=== PATIENT | male | born 1930 | race Caucasian/White ===

== ENCOUNTER 2017-04-03 09:50 | Inpatient (IN) | payer MEDICARE ==
[~2017-04-03] VITALS: Ht 180.3 cm; Wt 67.6 kg
[~2017-04-03 09:50] MED LIST: ACET-2900 PO; ASCO250T5 PO; CALC-877 PO; CARV6.2579 PO; DOCU-116 PO; GUAIFCF5L PO; LEVO125T11 PO; LEVO500T2 PO; MULT-248 PO; SIMV20TA6 PO; ZINC50TA38 PO
[2017-04-03 10:08] LABS: BASOPHILS % (AUTO) 0.5 % (0.0-5.0); HEMATOCRIT 28.2 % (42-54); LYMPHOCYTES % (AUTO) 13.6 % (21.0-51.0); MEAN CORPUSCULAR HEMOGLOBIN 23.2 pg (27.0-33.0); MEAN CORPUSCULAR HGB CONC 30.4 g/dL (32.0-36.0); MEAN CORPUSCULAR VOLUME 76.5 fL (79-99); MONOCYTES % (AUTO) 8.4 % (3.0-13.0); NEUTROPHILS % (AUTO) 74.5 % (40.0-77.0); PLATELET COUNT (AUTO) 322 K/uL (130-400); RED BLOOD CELL COUNT(AUTO) 3.68 MIL/uL (4.50-6.20); RED CELL DISTRIBUTION WIDTH 18.2 % (11.0-15.5); WHITE BLOOD COUNT (AUTO) 11.6 K/uL (4.8-10.8)
[2017-04-03 10:24] LABS: ALBUMIN 2.1 g/dL (3.5-5.0); BILIRUBIN,DIRECT 0.2 mg/dL (0.0-0.3); BILIRUBIN,TOTAL 0.4 mg/dL (0.2-1.0); CREATININE 1.5 mg/dL (0.5-1.5); POTASSIUM 3.9 mmol/L (3.5-5.1); TOTAL PROTEIN, SERUM 7.2 g/dL (6.0-8.3)
[2017-04-03] MEDS ORDERED: PANTOPRAZOLE SODIUM 80 MG in NS 100ML IVP SCH ×5 (10:30→20:45)
[2017-04-03 10:45] LABS: INR 1.1 (0.85-1.15); PARTIAL THROMBOPLASTIN TIME 27.2 SEC (26.3-35.5); PROTHROMBIN TIME 11.5 SEC (9.6-11.6)
[2017-04-03] MEDS ORDERED: IOPAMIDOL-370 100 ML VIAL IV ONE (11:06)
[2017-04-03] MEDS ORDERED: VANCOMYCIN 1GM+NS 250ML 250 ML IV ONE (14:49)
[2017-04-03] MEDS ORDERED: ZOSYN 3.375GM+NS 50ML 50 ML IV ONE (14:49)
[2017-04-03] MEDS ORDERED: VANCOMYCIN PROTOCOL PER PHARMACY IV SCH (15:00)
[2017-04-03 20:25] VITALS: BP 111/52
[2017-04-03] MEDS ORDERED: LACTULOSE 20 GM/30 ML UDCUP PO PRN (21:30)
[2017-04-03] MEDS ORDERED: ONDANSETRON HCL 4 MG/2 ML VIAL IVP PRN (21:30)
[2017-04-03] MEDS ORDERED: CLONIDINE HCL 0.1 MG TABLET PO PRN (21:30)
[2017-04-03] MEDS ORDERED: ACETAMINOPHEN 325 MG TAB PO PRN ×2 (21:30)
[2017-04-03] MEDS: ZOSYN 3.375GM+NS 50ML 50 ML IV SCH (22:05)
[2017-04-04 00:25] VITALS: BP 103/58
[2017-04-04 04:08] VITALS: BP 104/71
[2017-04-04] MEDS ORDERED: DONE10TA8 PO (04:46)
[2017-04-04] MEDS ORDERED: CARB-38 PO (04:46)
[2017-04-04 05:02] LABS: HEMATOCRIT 25.7 % (42-54); MEAN CORPUSCULAR HEMOGLOBIN 24.1 pg (27.0-33.0); MEAN CORPUSCULAR HGB CONC 31.4 g/dL (32.0-36.0); MEAN CORPUSCULAR VOLUME 76.6 fL (79-99); PLATELET COUNT (AUTO) 299 K/uL (130-400); RED BLOOD CELL COUNT(AUTO) 3.35 MIL/uL (4.50-6.20); RED CELL DISTRIBUTION WIDTH 17.9 % (11.0-15.5); WHITE BLOOD COUNT (AUTO) 10.9 K/uL (4.8-10.8)
[2017-04-04 05:10] LABS: CREATININE 1.6 mg/dL (0.5-1.5); POTASSIUM 3.8 mmol/L (3.5-5.1)
[2017-04-04] MEDS: ZOSYN 3.375GM+NS 50ML 50 ML IV SCH ×3 (05:13→21:50)
[2017-04-04] MEDS: VANCOMYCIN 500MG+NS 100ML 100 ML IV SCH ×2 (05:13→17:43)
[2017-04-04 08:00] VITALS: BP 97/34
[2017-04-04] MEDS: DEXTROSE 5%-WATER 1,000 ML IV SCH (10:15)
[2017-04-04] MEDS ORDERED: DOCUSATE SODIUM 100 MG CAP PO PRN (10:15)
[2017-04-04 12:00] VITALS: BP 128/60
[2017-04-04] MEDS: CARBIDOPA-LEVODOPA 25-100 TAB PO SCH ×2 (15:02→21:47)
[2017-04-04 16:00] VITALS: BP 119/62
[2017-04-04] MEDS: ASCORBIC ACID 500 MG TAB PO SCH (17:43)
[2017-04-04] MEDS: PANTOPRAZOLE SODIUM 40 MG TABLET.DR PO SCH (17:43)
[2017-04-04 20:00] VITALS: BP 121/53
[2017-04-04] MEDS: ATORVASTATIN CALCIUM 10 MG TABLET PO SCH (21:47)
[2017-04-04] MEDS: CARVEDILOL 6.25 MG TABLET PO SCH (21:48)
[2017-04-05] VITALS (7 sets, daily range): BP systolic 96–133; BP diastolic 53–78
[2017-04-05 03:56] LABS: HEMATOCRIT 24.8 % (42-54); MEAN CORPUSCULAR HEMOGLOBIN 23.6 pg (27.0-33.0); MEAN CORPUSCULAR HGB CONC 31.2 g/dL (32.0-36.0); MEAN CORPUSCULAR VOLUME 75.5 fL (79-99); PLATELET COUNT (AUTO) 308 K/uL (130-400); RED BLOOD CELL COUNT(AUTO) 3.28 MIL/uL (4.50-6.20); RED CELL DISTRIBUTION WIDTH 18.1 % (11.0-15.5); WHITE BLOOD COUNT (AUTO) 10.4 K/uL (4.8-10.8)
[2017-04-05 04:02] LABS: CREATININE 1.7 mg/dL (0.5-1.5); POTASSIUM 3.5 mmol/L (3.5-5.1)
[2017-04-05] MEDS: ZOSYN 3.375GM+NS 50ML 50 ML IV SCH ×3 (05:11→22:20)
[2017-04-05] MEDS: VANCOMYCIN 500MG+NS 100ML 100 ML IV SCH ×2 (05:12→16:51)
[2017-04-05] MEDS: DEXTROSE 5%-WATER 1,000 ML IV SCH (05:47)
[2017-04-05] MEDS: PANTOPRAZOLE SODIUM 40 MG TABLET.DR PO SCH ×2 (06:24→16:50)
[2017-04-05] MEDS: LEVOTHYROXINE 125 MCG TABLET PO SCH (06:24)
[2017-04-05] MEDS: DONEPEZIL HCL 5 MG TAB PO SCH (09:48)
[2017-04-05] MEDS: CARBIDOPA-LEVODOPA 25-100 TAB PO SCH ×3 (09:48→22:21)
[2017-04-05] MEDS: ASCORBIC ACID 500 MG TAB PO SCH ×2 (09:49→16:50)
[2017-04-05] MEDS: MULTIVITAMIN WITH MINERALS TABLET PO SCH (09:49)
[2017-04-05] MEDS: CARVEDILOL 6.25 MG TABLET PO SCH ×2 (09:49→22:21)
[2017-04-05] MEDS: ATORVASTATIN CALCIUM 10 MG TABLET PO SCH (22:21)
[2017-04-06] MEDS: DEXTROSE 5%-WATER 1,000 ML IV SCH ×4 (01:21→23:35)
[2017-04-06 04:00] VITALS: BP 124/68
[2017-04-06] MEDS: VANCOMYCIN 500MG+NS 100ML 100 ML IV SCH ×2 (05:17→17:24)
[2017-04-06] MEDS: ZOSYN 3.375GM+NS 50ML 50 ML IV SCH ×3 (05:18→21:33)
[2017-04-06] MEDS: LEVOTHYROXINE 125 MCG TABLET PO SCH (06:21)
[2017-04-06] MEDS: PANTOPRAZOLE SODIUM 40 MG TABLET.DR PO SCH ×2 (06:21→17:23)
[2017-04-06 06:49] LABS: HEMATOCRIT 26.6 % (42-54); MEAN CORPUSCULAR HEMOGLOBIN 24.1 pg (27.0-33.0); MEAN CORPUSCULAR HGB CONC 31.1 g/dL (32.0-36.0); MEAN CORPUSCULAR VOLUME 77.3 fL (79-99); PLATELET COUNT (AUTO) 297 K/uL (130-400); RED BLOOD CELL COUNT(AUTO) 3.44 MIL/uL (4.50-6.20); RED CELL DISTRIBUTION WIDTH 18.2 % (11.0-15.5); WHITE BLOOD COUNT (AUTO) 11.8 K/uL (4.8-10.8)
[2017-04-06 07:02] LABS: CARBON DIOXIDE 25 mmol/L (21-32); CREATININE 2.1 mg/dL (0.5-1.5); GLOMERULAR FILTR. RATE CALC 32 mL/min (>60); GLUCOSE,RANDOM 104 mg/dL (70-105); POTASSIUM 3.7 mmol/L (3.5-5.1); UREA NITROGEN, BLOOD 38 mg/dL (7-18)
[2017-04-06 07:27] LABS: CHLORIDE > 130 mmol/L (101-111); SODIUM SERUM 167 mmol/L (136-145)
[2017-04-06 08:00] VITALS: BP 137/54
[2017-04-06] MEDS: DONEPEZIL HCL 5 MG TAB PO SCH (10:10)
[2017-04-06] MEDS: CARVEDILOL 6.25 MG TABLET PO SCH ×2 (10:10→21:33)
[2017-04-06] MEDS: MULTIVITAMIN WITH MINERALS TABLET PO SCH (10:10)
[2017-04-06] MEDS: CARBIDOPA-LEVODOPA 25-100 TAB PO SCH ×3 (10:10→21:33)
[2017-04-06] MEDS: ASCORBIC ACID 500 MG TAB PO SCH ×2 (10:10→17:23)
[2017-04-06 11:00] VITALS: BP 105/49
[2017-04-06] MEDS ORDERED: CARBIDOPA-LEVODOPA 25-100 TAB PO ONE (13:10)
[2017-04-06 16:00] VITALS: BP 106/52
[2017-04-06 20:00] VITALS: BP 112/50
[2017-04-06] MEDS: ATORVASTATIN CALCIUM 10 MG TABLET PO SCH (21:33)
[2017-04-07] VITALS: BP 115/55
[2017-04-07 04:00] VITALS: BP 109/58
[2017-04-07 05:28] LABS: HEMATOCRIT 25.6 % (42-54); MEAN CORPUSCULAR HGB CONC 30.2 g/dL (32.0-36.0); MEAN CORPUSCULAR VOLUME 76.2 fL (79-99); PLATELET COUNT (AUTO) 253 K/uL (130-400); RED BLOOD CELL COUNT(AUTO) 3.36 MIL/uL (4.50-6.20); RED CELL DISTRIBUTION WIDTH 18.5 % (11.0-15.5); WHITE BLOOD COUNT (AUTO) 13.8 K/uL (4.8-10.8)
[2017-04-07 05:44] LABS: CREATININE 2.1 mg/dL (0.5-1.5); POTASSIUM 3.3 mmol/L (3.5-5.1)
[2017-04-07] MEDS: VANCOMYCIN 500MG+NS 100ML 100 ML IV SCH (06:10)
[2017-04-07] MEDS: LEVOTHYROXINE 125 MCG TABLET PO SCH (06:55)
[2017-04-07] MEDS: ZOSYN 3.375GM+NS 50ML 50 ML IV SCH (06:55)
[2017-04-07 08:00] VITALS: BP 124/56
[2017-04-07] MEDS: DEXTROSE 5%-WATER 1,000 ML IV SCH (08:25)
[2017-04-07 11:00] VITALS: BP 114/60
[2017-04-07] MEDS ORDERED: MULTIVITAMIN WITH MINERALS TABLET PO ONE (11:15)
[2017-04-07] MEDS: PANTOPRAZOLE SODIUM 40 MG TABLET.DR PO SCH (11:22)
[2017-04-07] MEDS: MULTIVITAMIN WITH MINERALS TABLET PO SCH (11:22)
[2017-04-07] MEDS: ASCORBIC ACID 500 MG TAB PO SCH (11:22)
[2017-04-07] MEDS: CARVEDILOL 6.25 MG TABLET PO SCH (11:22)
[2017-04-07] MEDS: DONEPEZIL HCL 5 MG TAB PO SCH (11:39)
[2017-04-07] MEDS: CARBIDOPA-LEVODOPA 25-100 TAB PO SCH (11:39)
[2017-04-07 16:00] VITALS: BP 128/55
[2017-04-07 20:00] VITALS: BP 105/59
== END 2017-04-07 20:35 | DRG 314 ==
LOC: EDH 09:50 → EDHIP 11:56 → OBSVTOIN 11:56 → 3BH 19:59
PROVIDERS: ADMIT Family Medicine; ATTEND Family Medicine
DX: T82.7XXA Infection and inflammatory reaction due to other cardiac and vascular devices, implants and grafts, initial encounter (principal); K65.1 Peritoneal abscess; N17.9 Acute kidney failure, unspecified; E87.0 Hyperosmolality and hypernatremia; K92.2 Gastrointestinal hemorrhage, unspecified; N13.30 Unspecified hydronephrosis; G91.2 (Idiopathic) normal pressure hydrocephalus; G20 Parkinson's disease; D64.9 Anemia, unspecified; E11.9 Type 2 diabetes mellitus without complications; I77.6 Arteritis, unspecified; E03.9 Hypothyroidism, unspecified; E78.5 Hyperlipidemia, unspecified; F03.90 Unspecified dementia, unspecified severity, without behavioral disturbance, psychotic disturbance, mood disturbance, and anxiety; I10 Essential (primary) hypertension; I25.10 Atherosclerotic heart disease of native coronary artery without angina pectoris; Y83.2 Surgical operation with anastomosis, bypass or graft as the cause of abnormal reaction of the patient, or of later complication, without mention of misadventure at the time of the procedure; Z66 Do not resuscitate; Z74.01 Bed confinement status; Z85.46 Personal history of malignant neoplasm of prostate; Z86.79 Personal history of other diseases of the circulatory system; Z95.1 Presence of aortocoronary bypass graft
CPT/HCPCS: 36415; 74174; 80048; 80076; 80202; 82270; 83605; 83690; 85025; 85027; 85610; 85730; 86850; 86900; 86901; 86922; 87040; 99291; A6453; C9113; J2543; J3370; J7070; Q9967